=== PATIENT | female | born 1965 | race Caucasian/White ===

== ENCOUNTER → 2020-06-25 13:00 | Outpatient (BNVA) | payer MEDICARE, SELFPAY | PROVIDERS: Visit Provider Family Medicine | DX: M79.604 Pain in right leg (principal) | CPT/HCPCS: 73502 ==

== ENCOUNTER → 2022-07-03 14:07 | Outpatient (BNVA) | payer MEDICARE, MEDICAID, SELFPAY | PROVIDERS: Visit Provider Family Medicine | DX: M25.562 Pain in left knee (principal); M25.552 Pain in left hip; M25.572 Pain in left ankle and joints of left foot; M17.12 Unilateral primary osteoarthritis, left knee | CPT/HCPCS: 73502; 73562; 73610 ==

== ENCOUNTER 2022-09-04 14:40 | Outpatient (CLI) | payer MEDICARE, MEDICAID, SELFPAY ==
--- NOTE | 2022-09-04 14:52 | MR_ITS ---
WS: [id number] MRI PELVIS without CONTRAST. COMPARISON: LEFT hip radiograph 07/03/2022. Multiplanar, multisequence imaging is performed without contrast. History: LEFT leg swelling with instability. Trouble walking. No injury. No acute fracture or marrow edema within the sacrum or bones of the pelvis. Mild narrowing of the hip joints bilaterally. Moderate-sized joint effusion surrounding the RIGHT hip. There are small loose b odies within the RIGHT hip joint effusion suggesting synovial chondromatosis. Cortical irregularity i nvolving the RIGHT femoral head. Cortical erosions with joint space narrowing. There is mild lateral subluxation of the RIGHT femoral head with respect to the acetabulum. No joint effusion on the LEFT. Urinary bladder is mildly distended. Uterus remains midline. No pelvic mass identified. There is increase fluid and increased T2 signal bilaterally in the facet joints at L4-5 greatest on t he LEFT. Favor LEFT facet joint cyst measuring 11 mm. Component of mild central stenosis at L4-5 is l ikely. MR/MR pelvis wo con* [id number] IMPRESSION: 1. No acute fractures or significant marrow edema. 2. Joint space narrowing with osteochondral erosions and joint effusion with l oose bodies involving the RIGHT hip. Favor synovial chondromatosis. Mild latera l subluxation of the RIGHT hip with respect to the acetabulum. 3. Mild central stenosis suspected at L4-5.
== END 2022-09-04 14:41 | disposition home or self-care (01) ==
LOC: RAD 14:44
PROVIDERS: Visit Provider Family Medicine
DX: M25.551 Pain in right hip (principal); M25.552 Pain in left hip; R22.42 Localized swelling, mass and lump, left lower limb; R26.2 Difficulty in walking, not elsewhere classified; S73.001A Unspecified subluxation of right hip, initial encounter; X58.XXXA Exposure to other specified factors, initial encounter
CPT/HCPCS: 72195

== ENCOUNTER 2022-09-30 14:23 | Outpatient (CLI) | payer MEDICARE, MEDICAID, SELFPAY ==
--- NOTE | 2022-09-30 14:40 | MR_ITS ---
WS: [id number] MRI LEFT KNEE HISTORY: Chronic LEFT LEG PAIN COMPARISON: LEFT knee 07/03/2022. Quality is compromised by motion artifact. Anterior cruciate ligament: No well visualized to exclude tear. Posterior cruciate ligament: Intact. Medial collateral ligament: Small amount of fluid adjacent to the MCL. Posterior lateral corner structures: Limited. Medial menisci: Very limited. Equal sized. Lateral meniscus: Limited. Extensor mechanism: Distal quadriceps tendon and patellar tendons are intact. Fluid and soft tissue: Small suprapatellar joint effusion. No Duval's cyst. Osseous and articular structures: Patellofemoral compartment: Mild narrowing of the joint space. Subchondral edema near the patellar em inence. Medial compartment: Very mild narrowing. Thinning of the cartilage. Lateral compartment: Mild narrowing with thinning of the cartilage and chondromalacia which is mild. Focal osteochondral lesion measuring 11 mm along the nonweightbearing surface anterior lateral femora l condyle. MR/MR knee LT wo con* [id number] IMPRESSION: 1. Very limited and suboptimal evaluation of the knee. Patient was unable to r emain still for this examination and was unable to follow instructions. 2. Small suprapatellar joint effusion. 3. Poorly visualized ACL. Tear is not excluded. 4. Poor visualization of the menisci but no large tear. 5. Osteochondral lesion along the anterior lateral nonweightbearing femoral co ndyle.
== END 2022-09-30 14:24 | disposition home or self-care (01) ==
LOC: RAD 14:28
PROVIDERS: PCP Family Medicine; Visit Provider Family Medicine
DX: G89.29 Other chronic pain (principal); M79.605 Pain in left leg
CPT/HCPCS: 73721

== ENCOUNTER → 2023-07-30 14:17 | Outpatient (BNVA) | payer MEDICARE, MEDICAID, SELFPAY | PROVIDERS: PCP Family Medicine; Referring Provider Internal Medicine; Visit Provider Physician Assistant | DX: M17.0 Bilateral primary osteoarthritis of knee | CPT/HCPCS: 20610; 73560; 73565; 99203; J3301 ==

== ENCOUNTER → 2023-10-22 14:46 | Outpatient (BNVA) | payer MEDICARE, MEDICAID, SELFPAY | PROVIDERS: PCP Family Medicine; Visit Provider Student in an Organized Health Care Education/Training Program | DX: M17.0 Bilateral primary osteoarthritis of knee (principal) | CPT/HCPCS: 99213 ==

== ENCOUNTER → 2023-12-01 14:57 | Outpatient (BNVA) | payer MEDICARE, MEDICAID, SELFPAY | PROVIDERS: PCP Family Medicine; Visit Provider Physician Assistant | DX: M17.0 Bilateral primary osteoarthritis of knee (principal); M79.89 Other specified soft tissue disorders | CPT/HCPCS: 20610; 99213; J3301 ==

== ENCOUNTER → 2024-05-09 16:30 | Outpatient (BNVA) | payer MEDICARE, MEDICAID, SELFPAY | PROVIDERS: PCP Family Medicine; Visit Provider Family Medicine | DX: R82.998 Other abnormal findings in urine | CPT/HCPCS: 81000 ==

== ENCOUNTER → 2025-02-08 15:00 | Outpatient (BNVA) | payer MEDICARE, MEDICAID, SELFPAY | PROVIDERS: PCP Family Medicine; Visit Provider Family Medicine | DX: R32 Unspecified urinary incontinence (principal) | CPT/HCPCS: 80053; 80061; 81000; 82306; 82607; 83036; 83735; 84439; 84443; 85025 ==